=== PATIENT | male | born 2000 | race Caucasian/White ===

== ENCOUNTER → 2022-11-17 | Outpatient (CLI) | payer OTHER ==
[2022-11-17 15:04] LABS: BASO % 0.7 % (0.0-1.0); EOS # 0.1 10^3/uL (0.0-0.5); EOS % 1.6 % (0.0-3.0); HEMATOCRIT 47.4 % (42.0-52.0); LYMPH # 1.8 10^3/uL (1.5-5.0); LYMPH % 32.3 % (24.0-44.0); MEAN CORPUSCULAR HEMOGLOBIN 29.1 pg (27.0-33.0); MEAN CORPUSCULAR HGB CONC 33.8 g/dl (32.0-36.5); MEAN CORPUSCULAR VOLUME 86.2 fl (80.0-96.0); MONO # 0.4 10^3/uL (0.0-0.8); MONO % 6.6 % (2.0-8.0); NEUTROPHILS # 3.2 10^3/uL (1.5-8.5); NEUTROPHILS % 58.4 % (36.0-66.0); PLATELET COUNT, AUTOMATED 258 10^3/uL (150-450); WHITE BLOOD COUNT 5.5 10^3/uL (4.0-10.0)
[2022-11-17 15:06] LABS: C REACTIVE PROTEIN QUANTITATIV < 0.40 MG/DL (<1.0); FREE T4 1.01 NG/DL (0.89-1.76); VITAMIN B12 LEVEL 479 PG/ML (211-911)
[2022-11-17 15:07] LABS: ALBUMIN 4.8 G/DL (3.2-5.2); ALKALINE PHOSPHATASE 74 U/L (46-116); ALT/SGPT 86 U/L (7.0-40); AST/SGOT 37 U/L (<34); BILIRUBIN,TOTAL 0.9 MG/DL (0.3-1.2); BLOOD UREA NITROGEN 16 MG/DL (9-23); CALCIUM LEVEL 10.2 MG/DL (8.5-10.1); CARBON DIOXIDE LEVEL 27 MMOL/L (20-31); CHLORIDE LEVEL 102 MMOL/L (98-107); CREATININE FOR GFR 1.06 MG/DL (0.70-1.30); GLOMERULAR FILTRATION RATE > 60.0 (>60); GLUCOSE, FASTING 79 MG/DL (60-100); POTASSIUM SERUM 4.6 MMOL/L (3.5-5.1); SODIUM LEVEL 136 MMOL/L (136-145); TOTAL PROTEIN 7.8 G/DL (5.7-8.2)
[2022-11-17 15:08] LABS: RHEUMATOID FACTOR QUANT < 3.5 IU/ML (<14); THYROID STIMULATING HORMONE 2.154 uIU/ML (0.55-4.78)
[2022-11-17 15:11] LABS: FOLATE 15.8 NG/ML (>5.4)
[2022-11-17 15:37] LABS: ERYTHROCYTE SEDIMENTATION RATE 13 mm/hr (0-15)
[2022-11-17 15:39] LABS: HEMOGLOBIN A1c 4.6 % (4.0-6.0)
[2022-11-20 18:07] LABS: IMMUNOTYPING SERUM IGA 81 mg/dL (90-386); IMMUNOTYPING SERUM IGG 1380 mg/dL (603-1613); IMMUNOTYPING SERUM IGM 74 mg/dL (20-172)
[2022-11-20 19:07] LABS: ALBUMIN 4.6 g/dL (2.9-4.4); ALPHA-1-GLOBULINS 0.2 g/dL (0.0-0.4); ALPHA-2-GLOBULINS 0.7 g/dL (0.4-1.0); BETA-1-GLOBULINS 1.2 g/dL (0.7-1.3); GAMMA GLOBULINS 1.3 g/dL (0.4-1.8); TOTAL PROTEIN ELECTROPHORESIS 8.1 g/dL (6.0-8.5)
[2022-11-24 12:08] LABS: ANTI DS-DNA AB Negative (Negative); ANTI-U1 RNP AB <20 Units (<20); ANTINUCLEAR ANTIBODIES DIRECT Negative (Negative); IgG P18 AB Absent (.); IgG P23 AB Absent (.); IgG P28 AB Absent (.); IgG P30 AB Absent (.); IgG P39 AB Absent (.); IgG P41 AB Present (.); IgG P45 AB Absent (.); IgG P66 AB Absent (.); IgG P93 AB Absent (.); IgM P23 AB Absent (.); IgM P39 AB Absent (.); IgM P41 AB Absent (.); LYME IgG WB INTERPRETATION Negative (.); LYME IgM WB INTERPRETATION Negative (.); RNP ANTIBODIES 0.2 AI (0.0-0.9); SJOGREN'S ANTI SS-A <0.2 AI (0.0-0.9); SJOGREN'S ANTI SS-B <0.2 AI (0.0-0.9); SMITH ANTIBODIES <0.2 AI (0.0-0.9); VITAMIN B1 LEVEL WHOLE BLOOD 152.7 nmol/L (66.5-200.0); VITAMIN B6,PYRIDOXAL PHOSPHATE 21.6 ug/L (3.4-65.2); VITAMIN E(ALPHA TOCOPHEROL) 10.6 mg/L (5.9-19.4); VITAMIN E(GAMMA TOCOPHEROL) 2.3 mg/L (0.7-4.9)
== END ==
LOC: M PLALAB 09:57
PROVIDERS: ATTEND Psychiatry & Neurology Neurology
DX: E07.9 Disorder of thyroid, unspecified (principal); M32.9 Systemic lupus erythematosus, unspecified; A69.20 Lyme disease, unspecified

== ENCOUNTER → 2022-12-21 | Outpatient (REF) | payer OTHER | LOC: M SFHCRHEU 09:16 | PROVIDERS: ATTEND Internal Medicine Rheumatology | DX: Z53.9 Procedure and treatment not carried out, unspecified reason (principal) ==

== ENCOUNTER → 2023-03-06 | Outpatient (CLI) | payer OTHER | LOC: M SOG 08:06 | PROVIDERS: ATTEND Orthopaedic Surgery Hand Surgery | DX: M25.532 Pain in left wrist (principal) ==

== ENCOUNTER → 2023-03-12 | Outpatient (CLI) | payer OTHER ==
[2023-03-12 13:25] LABS: BASO # 0.1 10^3/uL (0.0-0.2); BASO % 0.9 % (0.0-1.0); EOS # 0.1 10^3/uL (0.0-0.5); EOS % 1.7 % (0.0-3.0); HEMATOCRIT 45.8 % (42.0-52.0); LYMPH # 2.5 10^3/uL (1.5-5.0); LYMPH % 37.8 % (24.0-44.0); MEAN CORPUSCULAR HGB CONC 34.9 g/dl (32.0-36.5); MONO # 0.4 10^3/uL (0.0-0.8); MONO % 6.5 % (2.0-8.0); NEUTROPHILS # 3.4 10^3/uL (1.5-8.5); NEUTROPHILS % 52.8 % (36.0-66.0); PLATELET COUNT, AUTOMATED 251 10^3/uL (150-450); RED BLOOD COUNT 5.52 10^6/uL (4.30-6.10); WHITE BLOOD COUNT 6.5 10^3/uL (4.0-10.0)
[2023-03-12 13:30] LABS: C REACTIVE PROTEIN QUANTITATIV < 0.40 MG/DL (<1.0)
[2023-03-12 13:33] LABS: ALBUMIN 4.8 G/DL (3.2-5.2); ALKALINE PHOSPHATASE 70 U/L (46-116); ALT/SGPT 54 U/L (7.0-40); AST/SGOT 24 U/L (<34); BILIRUBIN,TOTAL 0.6 MG/DL (0.3-1.2); BLOOD UREA NITROGEN 11 MG/DL (9-23); CALCIUM LEVEL 9.7 MG/DL (8.5-10.1); CARBON DIOXIDE LEVEL 28 MMOL/L (20-31); CHLORIDE LEVEL 103 MMOL/L (98-107); CREATININE FOR GFR 1.12 MG/DL (0.70-1.30); GLOMERULAR FILTRATION RATE > 60.0 (>60); GLUCOSE, FASTING 91 MG/DL (60-100); POTASSIUM SERUM 4.6 MMOL/L (3.5-5.1); SODIUM LEVEL 139 MMOL/L (136-145); TOTAL PROTEIN 7.6 G/DL (5.7-8.2)
[2023-03-12 13:35] LABS: ERYTHROCYTE SEDIMENTATION RATE 7 mm/hr (0-15)
== END ==
LOC: M PLALAB 09:53
PROVIDERS: ATTEND Internal Medicine Rheumatology
DX: M25.561 Pain in right knee (principal)